=== PATIENT | female | born 1965 | race Caucasian/White ===

== ENCOUNTER 2020-02-10 10:06 | Emergency (ER) | payer BC, OTHER ==
[~2020-02-10] VITALS: Ht 154.9 cm; Wt 85.3 kg
[2020-02-10] MEDS ORDERED: MEDROL4 MG PO (11:15)
[2020-02-10] MEDS ORDERED: NAPROSYN500 MG PO (11:16)
[2020-02-10] MEDS ORDERED: TYLENOL # 31 EA PO (11:18)
[2020-02-10 11:58] VITALS: BP 101/75
[2020-02-10] MEDS ORDERED: CYMBALTA60 MG (12:09)
[2020-02-10] MEDS ORDERED: BUPROPION XL150 MG (12:09)
[2020-02-10] MEDS ORDERED: KLOR-CON M1515 MEQ ×2 (12:09)
[2020-02-10] MEDS ORDERED: SUMATRIPTAN SUC25 MG PO (12:09)
[2020-02-10] MEDS ORDERED: BENICAR20 MG PO (12:09)
[2020-02-10] MEDS ORDERED: MIRAPEX0.25 MG PO (12:09)
[2020-02-10] MEDS ORDERED: PROPRANOLOL HCL80 MG PO (12:09)
[2020-02-10] MEDS ORDERED: ATORVASTATIN CA20 MG PO (12:09)
[2020-02-10] MEDS ORDERED: ALPRAZOLAM0.5 M1 (12:09)
[2020-02-10] MEDS ORDERED: FENOFIBRATE54 MG (12:09)
== END 2020-02-10 11:40 | disposition home or self-care (01) ==
LOC: FSED 10:20
DX: M54.2 Cervicalgia (principal); M54.5 Low back pain; V43.52XA Car driver injured in collision with other type car in traffic accident, initial encounter; Y92.488 Other paved roadways as the place of occurrence of the external cause; I10 Essential (primary) hypertension; E78.5 Hyperlipidemia, unspecified; F41.9 Anxiety disorder, unspecified; F17.210 Nicotine dependence, cigarettes, uncomplicated
CPT/HCPCS: 99282